=== PATIENT | female | born 1945 ===

== ENCOUNTER → 2021-01-05 | Day surgery (SDC) | payer MEDICARE ==
[~2021-01-05] VITALS: Ht 162.6 cm; Wt 88.0 kg
[~2021-01-05] MED LIST: ANTIVERT25 MG PO; BACTRIM 400-801 EACH PO; BENADRYL ALLERG25 MG PO; ELIQUIS5 MG PO; GLUCOSAMINE CH1 EAC2 PO; MESTINON60 MG PO; ONDANSETRON ODT4 MG PO; PERCOCET 5-3251 EACH PO; TUMERIC PO; VALSARTAN-HCTZ1 EAC3 PO; VITAMIN D PO
[2021-01-05 08:36] LABS: HGB 12.7 g/dl (12.5-16.0); MCHC 32.6 g/dL (32.0-36.0); MCV 95.1 fL (78.0-100.0); MPV 10.5 fL (6.0-9.5); RBC 4.1 M/uL (4.20-5.40); RDW 14.3 % (11.5-14.0); WBC 6.8 K/uL (4.0-10.5)
[2021-01-05 08:52] LABS: BUN/CREAT RATIO (CALC) 22.3 RATIO; CREATININE 0.94 mg/dL (0.51-0.95)
== END | disposition home or self-care (01) ==
LOC: FAS 07:52
PROVIDERS: Anesthesiology; Obstetrics & Gynecology
DX: D27.1 Benign neoplasm of left ovary (principal); N83.201 Unspecified ovarian cyst, right side; I10 Essential (primary) hypertension; E78.00 Pure hypercholesterolemia, unspecified; K58.9 Irritable bowel syndrome, unspecified; K29.60 Other gastritis without bleeding; M81.0 Age-related osteoporosis without current pathological fracture; Z88.1 Allergy status to other antibiotic agents; Z88.5 Allergy status to narcotic agent; G43.909 Migraine, unspecified, not intractable, without status migrainosus; G70.00 Myasthenia gravis without (acute) exacerbation; Z96.641 Presence of right artificial hip joint; Z86.718 Personal history of other venous thrombosis and embolism; Z79.01 Long term (current) use of anticoagulants; Z98.1 Arthrodesis status; N83.8 Other noninflammatory disorders of ovary, fallopian tube and broad ligament
CPT/HCPCS: 36415; 80048; 86850; 86900; 86901; 93005; J1100; J1885; J2405; J2704; J2710; J3010; J7120